=== PATIENT | female | born 1970 | race Two or more races ===

== ENCOUNTER 2020-03-11 17:06 | Outpatient (CLI) | payer OTHER ==
[~2020-03-11] VITALS: Ht 157.5 cm; Wt 69.9 kg
[2020-03-12] MEDS ORDERED: SYNTHROID75 MCG (09:19)
[2020-03-12] MEDS ORDERED: DEXILANT30 MG (09:19)
== END 2020-03-11 17:30 | disposition home or self-care (01) ==
LOC: OFIC 805 17:06
PROVIDERS: ATTEND Otolaryngology
DX: M54.89 Other dorsalgia (principal); R07.89 Other chest pain; K21.0 Gastro-esophageal reflux disease with esophagitis

== ENCOUNTER → 2020-06-08 | Outpatient (CLI) | payer OTHER ==
[~2020-06-08] MED LIST: DEXILANT30 MG; SYNTHROID75 MCG
== END | disposition home or self-care (01) ==
LOC: OFIC 805 10:55
PROVIDERS: ATTEND Otolaryngology
DX: K21.00 Gastro-esophageal reflux disease with esophagitis, without bleeding (principal); J34.2 Deviated nasal septum; R09.81 Nasal congestion; J35.2 Hypertrophy of adenoids

== ENCOUNTER 2022-03-10 15:45 | Emergency (ER) | payer OTHER ==
[~2022-03-10] VITALS: Ht 162.6 cm; Wt 82.6 kg
[2022-03-10] MEDS ORDERED: KETO10TA2 PO (18:57)
== END 2022-03-10 19:15 | disposition home or self-care (01) ==
LOC: ER 15:45
DX: M94.0 Chondrocostal junction syndrome [Tietze] (principal)

== ENCOUNTER 2024-11-08 12:56 | Emergency (ER) | payer OTHER ==
[~2024-11-08] VITALS: Ht 157.5 cm; Wt 77.1 kg
[~2024-11-08 12:56] MED LIST changes: +KETO10TA2 PO
[2024-11-08 15:40] LABS: HEMATOCRIT 37.2 % (36.0-45.00); HEMOGLOBIN 12.7 g/dL (12.0-15.00); MEAN CELL VOLUME 84.3 fL (80.00-100.00); MEAN CORPUSCULAR HEMOGLOBIN 28.7 pg (27.00-32.0); MEAN CORPUSCULAR HGB CONC 34.1 g/dl (32.0-36.0); PLATELET COUNT 277 K/uL (150-450); RED BLOOD COUNT 4.41 M/uL (4.00-6.00); RED CELL DISTRIBUTION WIDTH 14.1 % (11.5-14.5)
[2024-11-08 15:51] LABS: URINE APPEARANCE Clear; URINE BILIRRUBIN Negative (NEGATIVE); URINE BLOOD Negative; URINE COLOR Yellow; URINE GLUCOSE Negative (NEGATIVE); URINE KETONE Negative (NEGATIVE); URINE LEUKOCYTE Negative; URINE NITRATE Negative; URINE PROTEIN Negative (NEGATIVE); URINE UROBILINOGEN 0.2 E.U./dl
[2024-11-08 15:56] LABS: URINE BACTERIA 62.3 uL (0.0-1933); URINE EPITHELIAL CELLS 6.3 uL (0.0-38.8); URINE WBC 2.5 uL (0.0-23.2)
[2024-11-08 16:14] LABS: ALBUMIN 3.6 gm/dL (3.4-5.0); BILIRUBIN TOTAL 0.47 mg/dL (0.3-1.2); CALCIUM 9.2 mg/dL (8.5-10.1); CREATININE SERUM 0.75 mg/dL (0.55-1.02); GFR 80.23; GLOBULINA 3.9 G/DL (2.4-3.5); POTASSIUM 4.31 mEq/L (3.5-5.1); TOTAL PROTEIN 7.5 gm/dL (6.4-8.2)
[2024-11-08 16:35] LABS: URINE RBC 1.1 uL (0.0-20.8)
[2024-11-08] MEDS ORDERED: LOSARTAN POTASSIUM 25 MG TABLET PO STA (16:43)
== END 2024-11-08 17:39 | disposition home or self-care (01) ==
LOC: ER 12:59
DX: R09.89 Other specified symptoms and signs involving the circulatory and respiratory systems (principal); Z88.8 Allergy status to other drugs, medicaments and biological substances; I10 Essential (primary) hypertension; Z20.822 Contact with and (suspected) exposure to COVID-19

== ENCOUNTER → 2025-07-02 | Emergency (ER) | payer OTHER ==
[~2025-07-02] VITALS: Ht 157.5 cm; Wt 74.8 kg
[~2025-07-02] MED LIST changes: +ACETAMINOPHEN 500 MG GEL..CAP PO ONE; +COZAAR25 MG PO; +FAMOTIDINE/PF 20 MG/2 ML VIAL IV ONE; +FAMOTIDINE/PF 20 MG/2 ML VIAL ONE
== END | disposition left against medical advice (07) ==
LOC: ER 18:14
DX: I10 Essential (primary) hypertension (principal); Z56.6 Other physical and mental strain related to work; R45.89 Other symptoms and signs involving emotional state; M94.0 Chondrocostal junction syndrome [Tietze]; Z88.9 Allergy status to unspecified drugs, medicaments and biological substances; Z91.041 Radiographic dye allergy status